=== PATIENT | male | born 1995 | race Caucasian/White ===

== ENCOUNTER 2020-10-12 23:15 | Emergency (ER) | payer OTHER ==
[~2020-10-12] VITALS: Ht 182.9 cm; Wt 70.3 kg
[2020-10-12 23:17] VITALS: BP_SYST 130
[2020-10-12] MEDS ORDERED: IBUPROFEN 600 MG TABLET PO ONE (23:45)
[2020-10-13 02:23] VITALS: BP_SYST 125
== END 2020-10-13 02:23 | disposition home or self-care (01) ==
LOC: SED 23:15
DX: S92.351A Displaced fracture of fifth metatarsal bone, right foot, initial encounter for closed fracture (principal); W22.8XXA Striking against or struck by other objects, initial encounter; Y93.89 Activity, other specified; Y92.89 Other specified places as the place of occurrence of the external cause; Y99.8 Other external cause status
CPT/HCPCS: 99283